=== PATIENT | female | born 1995 | race Asian ===

== ENCOUNTER 2018-08-30 03:06 | Emergency (ER) | payer OTHER ==
--- NOTE | 2018-08-30 03:21 | ED ---
Palpitations / Dysrhythmia - HPI Summary HPI Summary: This patient is a 22 year old F presenting to ED with a chief complaint of palpitations since earlier this morning which woke her from sleep. The CC is described as skipping beats, intermittent (occurs every few weeks, had previous episodes 1 month ago that resolved). The patient rates the pain 0/10 in severity. Symptoms aggravated by nothing. Symptoms alleviated by nothing. Patient took only 1 Tylenol today and takes little caffeine. Patient reports anxiety. - History of Current Complaint Chief Complaint: EDDysrhythmPalp Time Seen by Provider: 08/30/18 03:15 Hx Obtained From: Patient Onset/Duration: Sudden Onset, Lasting Hours, Still Present Timing: Intermittent Episodes Lasting: Severity Currently: None Character: Skipped Beats Aggravating: Nothing Alleviating: Nothing - Allergy/Home Medications Allergies/Adverse Reactions: Allergies Allergy/AdvReac Type Severity Reaction Status Date / Time No Known Allergies Allergy Verified 08/30/18 03:11 Home Medications: Home Medications NK [No Home Medications Reported] 08/30/18 [History Confirmed 08/30/18] PMH/Surg Hx/FS Hx/Imm Hx Endocrine/Hematology History: Denies: Hx Diabetes Cardiovascular History: Denies: Hx Coronary Artery Disease Respiratory History: Reports: Hx Asthma Infectious Disease History: No Infectious Disease History: Denies: Traveled Outside the [place] in Last 30 Days - Family History Known Family History: Negative: Cardiac Disease, Hypertension, Diabetes - Social History Alcohol Use: Occasionally Substance Use Type: Reports: None Smoking Status (MU): Never Smoked Tobacco Review of Systems Positive: Palpitations Positive: Anxious All Other Systems Reviewed And Are Negative: Yes Physical Exam - Summary Physical Exam Summary: VITAL SIGNS: Reviewed. GENERAL: Patient is a well-developed and nourished FEMALE who is lying comfortable in the stretcher. Patient is not in any acute respiratory distress. HEAD AND FACE: No signs of trauma. No ecchymosis, hematomas or skull depressions. No sinus tenderness. EYES: PERRLA, EOMI x 2, No injected conjunctiva, no nystagmus. EARS: Hearing grossly intact. Ear canals and tympanic membranes are within normal limits. MOUTH: Oropharynx within normal limits. NECK: Supple, trachea is midline, no adenopathy, no JVD, no carotid bruit, no c- spine tenderness, neck with full ROM. CHEST: Symmetric, no tenderness at palpation LUNGS: Clear to auscultation bilaterally. No wheezing or crackles. CVS: S1 and S2 present, no murmurs or gallops appreciated. During exam, patient was having infrequent PVCs in the monitor. ABDOMEN: Soft, non-tender. No signs of distention. No rebound no guarding, and no masses palpated. Bowel sounds are normal. EXTREMITIES: FROM in all major joints, no edema, no cyanosis or clubbing. NEURO: Alert and oriented x 3. No acute neurological deficits. Speech is normal and follows commands. SKIN: Dry and warm. Triage Information Reviewed: Yes Vital Signs On Initial Exam: Initial Vitals Temp Pulse Resp BP Pulse Ox 99.1 F 83 16 148/83 99 08/30/18 03:08 08/30/18 03:08 08/30/18 03:08 08/30/18 03:08 08/30/18 03:08 Vital Signs Reviewed: Yes Diagnostics - Vital Signs Vital Signs Temp Pulse Resp BP Pulse Ox 08/30/18 03:08 99.1 F 83 16 148/83 99 - Laboratory Result Diagrams: 08/30/18 03:35 08/30/18 03:35 Lab Statement: Any lab studies that have been ordered have been reviewed, and results considered in the medical decision making process. - EKG 0315 Cardiac Rate: NL - 75 BPM EKG Rhythm: Sinus Rhythm Summary of EKG Findings: Normal axis. Normal interval. No ischemic changes. Course/Dx - Course Assessment/Plan: This patient is a 22 year old F presenting to ED with a chief complaint of palpitations since earlier this morning. EKG reveals NSR at 75 BPM and Normal axis. Normal interval. No ischemic changes. The patient will be discharged. Patient understands and agrees with this plan. - Diagnoses Provider Diagnoses: Anxiety, Heart palpitations Discharge - Sign-Out/Discharge Documenting (check all that apply): Patient Departure - discharge - Discharge Plan Condition: Stable Disposition: HOME Patient Education Materials: Heart Palpitations (ED), Anxiety (ED) Referrals: [facility] [Outside] (Follow up in 1-2 days.) Additional Instructions: RETURN TO THE EMERGENCY DEPARTMENT FOR CHANGING OR WORSENING SYMPTOMS. FOLLOW UP WITH PCP IN 1-2 DAYS. - Attestation Statements Document Initiated by Scribe: Yes Documenting Scribe: Chris Bush Provider For Whom Scribe is Documenting (Include Credential): Winnie Nuñez MD Scribe Attestation: Chris Dhaliwal, scribed for Winnie Nuñez MD on 08/30/18 at 0454. Status of Scribe Document: Ready
[2018-08-30] MEDS ORDERED: ALPRAZolam TAB* 0.5 MG PO ONE (03:27)
[2018-08-30 03:43] LABS: ABS Basophils 0 10^3/ul (0-0.2); ABS Eosinophils 0.2 10^3/ul (0-0.6); ABS Lymphocytes 2.8 10^3/ul (1.0-4.8); ABS Monocytes 0.6 10^3/ul (0-0.8); ABS Neutrophils 2.9 10^3/ul (1.5-7.7); ABS Nucleated RBC 0 10^3/ul; Eosinophil % 2.9 %; Hematocrit 39 % (35-47); Hemoglobin 13.5 g/dl (12.0-16.0); Lymphocyte % 42.5 %; Mean Corpuscular HGB Conc 34 g/dl (31-36); Mean Corpuscular Hemoglobin 31 pg (27-31); Mean Corpuscular Volume 90 fL (80-97); Nucleated Red Blood Cells % 0; Platelet Count 256 10^3/ul (150-450); Red Blood Count 4.37 10^6/ul (4.00-5.40); Red Cell Distribution Width 12 % (10.5-15); White Blood Count 6.5 10^3/ul (3.5-10.8)
[2018-08-30] MEDS ORDERED: Potassium Chlor TAB* 20 MEQ TAB.ER PO ONE (04:52)
[2018-08-30 05:16] VITALS: BP 111/68
== END 2018-08-30 05:16 | disposition home or self-care (01) ==
LOC: ED 03:06
DX: F41.9 Anxiety disorder, unspecified (principal); R00.2 Palpitations
CPT/HCPCS: 36415; 80053; 83735; 84443; 84484; 84702; 85025; 93005; 99283; A9270-GY